=== PATIENT | male | born 1990 | race Hispanic/Latino ===

== ENCOUNTER 2020-03-04 17:26 | Inpatient (IN) | payer OTHER ==
[~2020-03-04] VITALS: Ht 170.2 cm; Wt 95.9 kg
[2020-03-04] MEDS ORDERED: SODIUM CHLORIDE 0.9% 1000ML 1,000 ML IV ONE (17:49)
[2020-03-04 18:00] LABS: BASOPHILS % (AUTO) 0.5 % (0.0-5.0); EOSINOPHILS % (AUTO) 1.9 % (0.0-8.0); HEMATOCRIT 44.3 % (42-54); LYMPHOCYTES % (AUTO) 25.7 % (21.0-51.0); MEAN CORPUSCULAR VOLUME 88.6 fL (79-99); MONOCYTES % (AUTO) 6.6 % (3.0-13.0); NEUTROPHILS % (AUTO) 64.9 % (40.0-77.0); PLATELET COUNT (AUTO) 378 K/uL (130-400); RED CELL DISTRIBUTION WIDTH 13.3 % (11.0-15.5); WHITE BLOOD COUNT (AUTO) 12.4 K/uL (4.8-10.8)
[2020-03-04 18:04] LABS: CREATININE 1.3 mg/dL (0.5-1.5); POTASSIUM 3.7 mmol/L (3.5-5.1)
[2020-03-04 18:05] LABS: INR 1.06 (0.85-1.15); PARTIAL THROMBOPLASTIN TIME 27.5 SEC (26.3-35.5); PROTHROMBIN TIME 11.4 SEC (9.6-11.6)
[2020-03-04 18:08] LABS: ALBUMIN 3.9 g/dL (3.5-5.0); BILIRUBIN,TOTAL 0.6 mg/dL (0.2-1.0); TOTAL PROTEIN, SERUM 7.5 g/dL (6.0-8.3)
[2020-03-04] MEDS ORDERED: IOHEXOL 350 MG/ML 100ML INFUS..BTL IV ONE (18:13)
[2020-03-04] MEDS ORDERED: ONDANSETRON HCL 4 MG/2 ML VIAL ONE (19:23)
[2020-03-04] MEDS ORDERED: MORPHINE SULFATE 4 MG/1ML SYG ONE (19:24)
[2020-03-04] MEDS ORDERED: ZOSYN 3.375GM+NS 50ML 50 ML IV ONE (20:05)
[2020-03-04] MEDS ORDERED: ONDANSETRON HCL 4 MG/2 ML VIAL IV PRN (21:45)
[2020-03-04] MEDS ORDERED: MORPHINE SULFATE 4 MG/1ML SYG IV PRN (21:45)
[2020-03-04] MEDS: LACTATED RINGERS 1000ML 1,000 ML IV SCH (21:45)
[2020-03-04 23:40] VITALS: BP 131/89
--- NOTE | 2020-03-04 23:40 | NUR ---
admission note admit to room 301 via w/c form er. patient awake, alert, ox3, no sob, c/o pain see pain assessment and treatment, right ac 18 gauge patent with ivf infusing well, continue npo, teach patient plan of care and expected outcome, patient verbalizes understanding via teach back
[2020-03-05] MEDS: MORPHINE SULFATE 2 MG/ML 1ML SYG IV PRN ×2 (00:03→09:39)
[2020-03-05] MEDS: LACTATED RINGERS 1000ML 1,000 ML IV SCH (00:04)
[2020-03-05] MEDS ORDERED: ZOSYN 3.375GM+NS 50ML 50 ML IV ONE (03:41)
[2020-03-05 04:07] VITALS: BP 118/69
[2020-03-05] MEDS: ZOSYN 3.375GM+NS 50ML 50 ML IV SCH ×3 (04:08→21:41)
[2020-03-05 08:00] VITALS: BP 114/73
[2020-03-05] MEDS: FAMOTIDINE/PF 20 MG/2 ML VIAL IV SCH ×2 (09:26→21:40)
--- NOTE | 2020-03-05 09:35 | NUR ---
i spoke to pt's on the phone and updated her as to pt's plan of care.
[2020-03-05 11:42] VITALS: BP 98/78
--- NOTE | 2020-03-05 15:53 | NUR ---
INITIAL: Met with pt this afternoon to discuss dcp. Pt mentions that prior to admission he was living alone in a 3rd floor apartment. Per pt if he requires surgery he plans to stay w his parents at [place]. Pt states that prior to admission he was independent w ambulation and ADLs. He does not own any DME or receive services. Low income resource packet provided to pt. Discussed $4 prescription discount program avail @ [facility] and [facility]. JENNINGS to continue to follow and wait for Md recommendations. Addendum: 03/05/20 at 1555 by PRABHA DAVIS CM Amended: Links added.
[2020-03-05 16:00] VITALS: BP 117/80
--- NOTE | 2020-03-05 17:09 | NUR ---
i have spoken to dr mendoza in regards to dr constantino stating pt's case is not an emergency and can be seen as outpatient for surgical repair; he stated he agreed with starting pt on a diet to see how he tolerates it then consider discharging him home tomorrow if tolerating diet.
--- NOTE | 2020-03-05 19:20 | NUR ---
Admission Assessment Received pt lying in bed watching TV, LR at 10cc/hr infusing well, routine assessment done, plan of care discuss, advise since no surgical intervention plan for pt to use an abdominal binder for now to reduce the protrusion of his transverse area hernia. Pt currently denies discomfort & aware once tolerating his diet well & passing gas with good BM he should not be concern too mauch as the hernia is non obstructing. Agreed with plan d/c tomorrow if her is able to eat regular diet with no problem.
[2020-03-05 20:12] VITALS: BP 106/67
--- NOTE | 2020-03-05 21:54 | NUR ---
Re: Family update Received a call from pt's mother Sandra Mccain, update given with all concern questions addressed, aware plan d/c for tomorrow, no surgical intervention for now.
[2020-03-05 23:37] VITALS: BP 116/67
[2020-03-06] MEDS: LACTATED RINGERS 1000ML 1,000 ML IV SCH ×3 (01:43→21:06)
[2020-03-06 03:42] LABS: MEAN CORPUSCULAR HEMOGLOBIN 31.1 pg (27.0-33.0); MEAN CORPUSCULAR VOLUME 88.9 fL (79-99); PLATELET COUNT (AUTO) 333 K/uL (130-400); RED CELL DISTRIBUTION WIDTH 12.8 % (11.0-15.5); WHITE BLOOD COUNT (AUTO) 9.6 K/uL (4.8-10.8)
[2020-03-06 03:57] LABS: CREATININE 1.1 mg/dL (0.5-1.5); POTASSIUM 3.8 mmol/L (3.5-5.1)
[2020-03-06 04:16] VITALS: BP 116/76
[2020-03-06 04:48] LABS: BAND NEUTROPHILS % (MANUAL) 2 % (0-2); EOSINOPHILS % (MANUAL) 9 % (1-6); LYMPHOCYTES % (MANUAL) 30 % (22-44); MONOCYTES % (MANUAL) 5 % (2-9); SEGMENTED NEUTROPHILS % 54 % (40-70)
[2020-03-06 04:49] LABS: MAN.DIFF COMMENT-IMPRESSION MANUAL DIFFERENTIAL; PLATELET MORPHOLOGY COMMENT ADEQUATE
[2020-03-06] MEDS: ZOSYN 3.375GM+NS 50ML 50 ML IV SCH ×3 (05:15→21:06)
[2020-03-06 08:00] VITALS: BP 114/76
[2020-03-06] MEDS: FAMOTIDINE/PF 20 MG/2 ML VIAL IV SCH ×2 (08:55→21:06)
[2020-03-06 12:00] VITALS: BP 123/73
--- NOTE | 2020-03-06 12:00 | NUR ---
Patient was alerted of contacting family;Patient denied that I call any family regarding of his day in the hospital on 03/06/2020.
[2020-03-06 16:00] VITALS: BP 117/65
[2020-03-06 19:00] VITALS: BP 122/71
--- NOTE | 2020-03-06 22:25 | NUR ---
DISCHARGE Dr DOVE came ad discharged pt.Discharge instructions given to pt,Verbalized understanding.Iv dcd.cath tip intact.Applied pressure until bleeding stopped.
== END 2020-03-06 22:44 | disposition home or self-care (01) | DRG 395 ==
LOC: EDH 17:26 → EDHIP 17:27 → 3AH 23:32
PROVIDERS: ADMIT Internal Medicine; ATTEND Internal Medicine
DX: K43.0 Incisional hernia with obstruction, without gangrene (principal); F17.210 Nicotine dependence, cigarettes, uncomplicated; E66.01 Morbid (severe) obesity due to excess calories; Z68.33 Body mass index [BMI] 33.0-33.9, adult; Z83.3 Family history of diabetes mellitus
CPT/HCPCS: 36415; 74177; 80048; 80053; 83690; 85025; 85610; 85730; G0378; J2270; J2405; J2543; J3490; J7030; J7120; Q9967

== ENCOUNTER 2020-03-17 13:50 | Emergency (ER) | payer OTHER ==
[2020-03-17] MEDS ORDERED: SODIUM CHLORIDE 0.9% 1000ML 1,000 ML IV ONE (14:01)
[2020-03-17 14:14] LABS: BASOPHILS % (AUTO) 0.6 % (0.0-5.0); EOSINOPHILS % (AUTO) 1.2 % (0.0-8.0); HEMATOCRIT 48.3 % (42-54); LYMPHOCYTES % (AUTO) 18.4 % (21.0-51.0); MEAN CORPUSCULAR HEMOGLOBIN 30.8 pg (27.0-33.0); MONOCYTES % (AUTO) 7.9 % (3.0-13.0); NEUTROPHILS % (AUTO) 71.7 % (40.0-77.0); PLATELET COUNT (AUTO) 333 K/uL (130-400); RED BLOOD CELL COUNT(AUTO) 5.49 MIL/uL (4.50-6.20); RED CELL DISTRIBUTION WIDTH 12.8 % (11.0-15.5); WHITE BLOOD COUNT (AUTO) 9.5 K/uL (4.8-10.8)
[2020-03-17 14:22] LABS: POTASSIUM 3.7 mmol/L (3.5-5.1)
[2020-03-17 14:24] LABS: INR 1.12 (0.85-1.15); PARTIAL THROMBOPLASTIN TIME 28.5 SEC (26.3-35.5)
[2020-03-17 14:26] LABS: ALBUMIN 3.9 g/dL (3.5-5.0); BILIRUBIN,TOTAL 0.3 mg/dL (0.2-1.0)
[2020-03-17] MEDS ORDERED: DICYCLOMINE HCL 10 MG/ML 2ML AMP IM ONE (14:31)
[2020-03-17] MEDS ORDERED: SIMETHICONE 80 MG TAB.CHEW ONE (14:32)
== END 2020-03-17 15:14 | disposition home or self-care (01) ==
LOC: EDH 13:50
DX: K43.9 Ventral hernia without obstruction or gangrene (principal); R10.84 Generalized abdominal pain; Z87.891 Personal history of nicotine dependence
CPT/HCPCS: 36415; 80053; 83690; 85025; 85610; 85730; 96360; 96372; 99283; J0500; J7030

== ENCOUNTER 2020-03-25 08:27 | Observation (INO) | payer OTHER ==
[2020-03-25] VITALS (16 sets, daily range): BP systolic 132–149; BP diastolic 80–97
[2020-03-25 08:53] LABS: BASOPHILS % (AUTO) 0.8 % (0.0-5.0); EOSINOPHILS % (AUTO) 3.7 % (0.0-8.0); HEMATOCRIT 45.2 % (42-54); LYMPHOCYTES % (AUTO) 28.3 % (21.0-51.0); MEAN CORPUSCULAR HEMOGLOBIN 30.9 pg (27.0-33.0); MEAN CORPUSCULAR VOLUME 88.5 fL (79-99); MONOCYTES % (AUTO) 7.7 % (3.0-13.0); NEUTROPHILS % (AUTO) 55.3 % (40.0-77.0); PLATELET COUNT (AUTO) 425 K/uL (130-400); RED BLOOD CELL COUNT(AUTO) 5.11 MIL/uL (4.50-6.20); RED CELL DISTRIBUTION WIDTH 12.7 % (11.0-15.5); WHITE BLOOD COUNT (AUTO) 10.8 K/uL (4.8-10.8)
[2020-03-25 09:00] LABS: CREATININE 0.8 mg/dL (0.5-1.5); POTASSIUM 4.3 mmol/L (3.5-5.1)
[2020-03-25 09:05] LABS: INR 1.01 (0.85-1.15); PARTIAL THROMBOPLASTIN TIME 26.6 SEC (26.3-35.5); PROTHROMBIN TIME 10.9 SEC (9.6-11.6)
[2020-03-25 09:06] LABS: ALBUMIN 3.8 g/dL (3.5-5.0); BILIRUBIN,TOTAL 0.3 mg/dL (0.2-1.0); TOTAL PROTEIN, SERUM 7.7 g/dL (6.0-8.3)
[2020-03-25] MEDS ORDERED: CEFAZOLIN SODIUM 1 GM VIAL ONE (14:56)
[2020-03-25] MEDS ORDERED: MIDAZOLAM HCL 1 MG/ML 2ML VIAL ONE (15:01)
[2020-03-25] MEDS ORDERED: ROCURONIUM 10MG/1ML SYR 10 MG/ML ML ONE (15:01)
[2020-03-25] MEDS ORDERED: SUCCINYLCHOLINE CHLORIDE 20 MG/ML 10 ML VIAL ONE (15:01)
[2020-03-25] MEDS ORDERED: LIDOCAINE PF 2% 5ML ABBOJECT ONE (15:01)
[2020-03-25] MEDS ORDERED: PROPOFOL 10 MG/ML 20ML VIAL IV ONE (15:01)
[2020-03-25] MEDS ORDERED: FENTANYL CITRATE PF 50 MCG/1 ML 5ML AMP IV ONE (15:02)
[2020-03-25] MEDS ORDERED: ROPIVACAINE 0.5% 5MG/ML 30ML IJ ONE (15:04)
[2020-03-25] MEDS ORDERED: GLYCOPYRROLATE 1 MG/5 ML SYRINGE ONE (16:05)
[2020-03-25] MEDS ORDERED: NEOSTIGMINE 5MG/5ML SYR IV ONE (16:05)
[2020-03-25] MEDS ORDERED: MEPERIDINE-PF 25 MG/ML SYG ONE ×3 (16:06→16:51)
[2020-03-25] MEDS ORDERED: FENTANYL CITRATE PF 50 MCG/1 ML 2ML VIAL ONE (16:13)
--- NOTE | 2020-03-25 18:35 | NUR ---
PT AAOX3, NO DISTRESS , VITALS WNL. PT INSTRUCTIONS GIVEN TO SPOUSE VERBALIZED UNDERSTANDING. PT IV D/C, CATHETER INTACT. PT TAKEN OUT IN WHEELCHAIR, WITH PERSONAL BELONGINGS, EARRINGS AND EXTRA SUPPLIES FOR WOUND CARE.
== END 2020-03-25 18:35 | disposition home or self-care (01) ==
LOC: EDH 08:27 → EDHIP 08:28 → DAHIP 16:26
PROVIDERS: ADMIT Surgery; ATTEND Surgery
DX: K43.0 Incisional hernia with obstruction, without gangrene (principal); F17.200 Nicotine dependence, unspecified, uncomplicated; Z87.19 Personal history of other diseases of the digestive system
CPT/HCPCS: 36415; 49566; 49568; 80053; 85025; 85610; 85730; 86850; 86900; 86901; 99284; A4452; C1781; G0168; G0378 ×9; J0330; J0690; J2001; J2175 ×3; J2250; J2704; J2710; J2795; J3010 ×2; J3490

== ENCOUNTER 2020-10-01 03:04 | Emergency (ER) | payer OTHER | END 2020-10-01 03:22 | LOC: EDH 03:04 | DX: Z02.83 Encounter for blood-alcohol and blood-drug test (principal); Z72.0 Tobacco use | CPT/HCPCS: 36415 ==

== ENCOUNTER 2021-02-28 09:42 | Emergency (ER) | payer SELFPAY ==
[~2021-02-28] VITALS: Ht 172.7 cm; Wt 94.8 kg
[2021-02-28 10:01] VITALS: BP 120/87
== END 2021-02-28 10:20 | disposition home or self-care (01) ==
LOC: EDH 09:42
DX: K42.0 Umbilical hernia with obstruction, without gangrene (principal)
CPT/HCPCS: 99281

== ENCOUNTER 2021-06-14 20:55 | Emergency (ER) | payer OTHER ==
[~2021-06-14] VITALS: Ht 170.2 cm; Wt 93.0 kg
[2021-06-14] MEDS ORDERED: ACET-66 PO (22:25)
[2021-06-14] MEDS ORDERED: IBUP-2077 PO (22:25)
[2021-06-14 22:35] VITALS: BP 132/88
== END 2021-06-14 21:37 | disposition home or self-care (01) ==
LOC: EDH 20:55
DX: U07.1 COVID-19 (principal); Z79.1 Long term (current) use of non-steroidal anti-inflammatories (NSAID)
CPT/HCPCS: 87635; 87804 ×2; 99283; C9803

== ENCOUNTER 2022-09-03 11:40 | Emergency (ER) | payer BC ==
[~2022-09-03] VITALS: Ht 167.6 cm; Wt 64.9 kg
[~2022-09-03 11:40] MED LIST: ACET-66 PO; IBUP-2077 PO
[2022-09-03 12:23] VITALS: BP 135/85
== END 2022-09-03 16:21 | disposition home or self-care (01) ==
LOC: EDH 11:40
DX: D17.5 Benign lipomatous neoplasm of intra-abdominal organs (principal); E11.9 Type 2 diabetes mellitus without complications; I10 Essential (primary) hypertension; Z79.1 Long term (current) use of non-steroidal anti-inflammatories (NSAID)
CPT/HCPCS: 76705